=== PATIENT | female | born 1935 | race Caucasian/White ===

== ENCOUNTER 2019-03-21 09:15 | Emergency (ER) | payer MEDICARE, OTHER ==
[~2019-03-21] VITALS: Ht 149.9 cm; Wt 44.2 kg
[2019-03-21 09:18] VITALS: BP 119/58; PULSE 82; RESP 18; Ht 149.9 cm; Wt 44.2 kg
[2019-03-21] MEDS ORDERED: DIPHTH/TET/ACEL PERTUSS (ADULT) 0.5 ML VIAL IM* ONE (10:00)
[2019-03-21] MEDS ORDERED: LIDOCAINE 1% (MPF) 5 ML VIAL INJ ONE (10:00)
[2019-03-21] MEDS ORDERED: CEFTRIAXONE 1 GM INJ IM ONE (10:00)
[2019-03-21] MEDS ORDERED: CEPH-443 PO (10:29)
[2019-03-21] MEDS ORDERED: SULF1TAB31 PO (10:29)
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
== END 2019-03-21 10:38 | disposition home or self-care (01) ==
LOC: FTE 09:15
DX: S80.812A Abrasion, left lower leg, initial encounter (principal); L03.116 Cellulitis of left lower limb; W22.8XXA Striking against or struck by other objects, initial encounter; Y92.9 Unspecified place or not applicable; Z23 Encounter for immunization
CPT/HCPCS: 73590; 90471; 90715; 96372; 99284; J0696